=== PATIENT | female | born 1985 | race Caucasian/White ===

== ENCOUNTER 2017-09-17 06:32 | Emergency (ER) | payer OTHER ==
[~2017-09-17] VITALS: Ht 162.6 cm; Wt 103.1 kg
--- NOTE | 2017-09-17 07:32 | PHYS DOC ---
Past Medical History Past Medical History: Hypertension Additional Past Medical Histor: MEDS D/C'D BY PHYSICIAN FOR HTN Past Surgical History: Cholecystectomy, , Other Additional Past Surgical Histo: SPLEENECTOMY, ARTHROSCOPY OF RIGHT KNEE Alcohol Use: None Drug Use: None Adult General Chief Complaint Chief Complaint: NEURO SYMPTOMS/DEFICITS HPI HPI 31-year-old female presenting to the emergency department today with left facial droop last known well at 2200 last night. She reports waking up this morning and noticing facial drooping. She denies any weakness numbness or tingling in her extremities. She denies vertigo currently. She denies vision changes or slurred speech. She denies ambulation difficulty. She denies chest pain shortness of breath. Location face. Duration constant. No alleviating or exacerbating factors present. She denies neck pain or recent neck manipulation. Review of systems is negative for chest pain shortness of breath abdominal pain nausea vomiting fevers chills. All other review of systems is negative unless otherwise noted in history of present illness. ED course: 31-year-old female presenting to the emergency department with facial droop. Patient was outside of the window for TPA based on last known well. On arrival she is mildly tachycardic afebrile and resting comfortably in the examination room. No other neurologic deficits noted on neuro exam. I discussed the case with Dr. saldaña our neurologist who recommended the patient receive an MRI of brain with fine cuts of the facial nerve. I discussed this with the patient which the patient does not want to pursue. I explained the risks and benefits including the risk of missing a stroke although unlikely in a young patient would be significant. I also specifically explained the concern that the facial palsy spares the forehead with the patient. I explained to her that this is more suggestive of a central cause which is why an MRI would be prudent. Patient demonstrates verbal understanding of this however desires to pursue MRI as an outpatient. Patient demonstrates medical decision making capacity. The patient was then discharged for outpatient MRI and outpatient consultation with our neurology team in 5-7 days which the patient is comfortable with. The patient was then discharged home to follow up with their primary care physician over the next 2-3 days and outpt MRI as desired per neurology. They were to return if their symptoms worsened or if they were concerned for any reason. [id number] discharge instructions and return precautions were given. Patient's questions were answered to their satisfaction. Patient is comfortable plan. Review of Systems Review of Systems SEE ABOVE. Physical Exam Physical Exam SEE ABOVE Constitutional: Well developed, well nourished, no acute distress, non-toxic appearance. HENT: Normocephalic, atraumatic, bilateral external ears normal, oropharynx moist, no oral exudates, nose normal. [] Eyes: PERRLA, EOMI, conjunctiva normal, no discharge. [] Neck: Normal range of motion, no tenderness, supple, no stridor. Cardiovascular:Heart rate regular rhythm, no murmur [] Lungs & Thorax: Bilateral breath sounds clear to auscultation [] Abdomen: Bowel sounds normal, soft, no tenderness, no masses, no pulsatile masses. Skin: Warm, dry, no erythema, no rash. [] Back: No tenderness, no CVA tenderness. [] Extremities: No tenderness, no cyanosis, no clubbing, ROM intact, no edema. [] Neurologic: Mental status: Awake oriented and alert x3 Cranial nerves: Extraocular movements intact, patient has partial palsy of the left side of the face sparing the forehead, uvula elevation, shoulder shrug intact, tongue protrusion normal DTRs: 2+ Sensation: equal and normal in all extremities Strength: 5/5 in upper and lower extremities bilaterally Normal rapid alternating movements. No evidence of dysdiadochokinesia. Normal [id number]. Normal finger to nose. Psychologic: Affect normal, judgement normal, mood normal. [] Current Patient Data Vital Signs Vital Signs Date Time Temp Pulse Resp B/P (MAP) Pulse Ox O2 Delivery O2 Flow Rate FiO2 09/17/17 08:57 81 16 97 09/17/17 06:32 98.3 148/77 (100) Room Air 98.3 Lab Values Laboratory Tests Test 09/17/17 06:38 09/17/17 07:00 09/17/17 07:26 09/17/17 07:45 Glucose (Fingerstick) 88 mg/dL (70-99) Urine Collection Type Unknown Urine Color Yellow Urine Clarity Clear Urine pH 6.0 Urine Specific [place] 1.025 Urine Protein Negative mg/dL (NEG-TRACE) Urine Glucose (UA) Negative mg/dL (NEG) Urine Ketones (Stick) Negative mg/dL (NEG) Urine Blood Moderate (NEG) Urine Nitrite Negative (NEG) Urine Bilirubin Negative (NEG) Urine Urobilinogen Dipstick 0.2 mg/dL (0.2 mg/dL) Urine Leukocyte Esterase Moderate (NEG) Urine RBC 3-5 /HPF (0-2) Urine WBC 11-20 /HPF (0-4) Urine Squamous Epithelial Cells Mod /LPF Urine Bacteria Moderate /HPF (0-FEW) Urine Mucus Marked /LPF POC Urine HCG, Qualitative Hcg negative (Negative) White Blood Count 10.8 x10^3/uL (4.0-11.0) Red Blood Count 4.84 x10^6/uL (3.50-5.40) Hemoglobin 13.3 g/dL (12.0-15.5) Hematocrit 40.0 % (36.0-47.0) Mean Corpuscular Volume 83 fL (79-100) Mean Corpuscular Hemoglobin 28 pg (25-35) Mean Corpuscular Hemoglobin Concent 33 g/dL (31-37) Red Cell Distribution Width 15.9 % (11.5-14.5) H Platelet Count 551 x10^3/uL (140-400) H Neutrophils (%) (Auto) 53 % (31-73) Lymphocytes (%) (Auto) 35 % (24-48) Monocytes (%) (Auto) 10 % (0-9) H Eosinophils (%) (Auto) 2 % (0-3) Basophils (%) (Auto) 0 % (0-3) Neutrophils # (Auto) 5.7 x10^3uL (1.8-7.7) Lymphocytes # (Auto) 3.7 x10^3/uL (1.0-4.8) Monocytes # (Auto) 1.1 x10^3/uL (0.0-1.1) Eosinophils # (Auto) 0.2 x10^3/uL (0.0-0.7) Basophils # (Auto) 0.0 x10^3/uL (0.0-0.2) Prothrombin Time 12.6 SEC (11.7-14.0) Prothrombin Time INR 1.0 (0.8-1.1) PTT 34 SEC (24-38) Sodium Level 140 mmol/L (136-145) Potassium Level 4.0 mmol/L (3.5-5.1) Chloride Level 104 mmol/L (98-107) Carbon Dioxide Level 27 mmol/L (21-32) Anion Gap 9 (6-14) Blood Urea Nitrogen 12 mg/dL (7-20) Creatinine 0.7 mg/dL (0.6-1.0) Estimated GFR (Cockcroft-Gault) 98.3 Glucose Level 95 mg/dL (70-99) Calcium Level 8.6 mg/dL (8.5-10.1) Laboratory Tests 09/17/17 07:45 Laboratory Tests 09/17/17 07:45 EKG EKG [] Radiology/Procedures Radiology/Procedures [] Course & Med Decision Making Course & Med Decision Making Pertinent Labs and Imaging studies reviewed. (See chart for details) [] Dragon Disclaimer Dragon Disclaimer This electronic medical record was generated, in whole or in part, using a voice recognition dictation system. Departure Departure Impression: Primary Impression: Facial droop Disposition: HOME, SELF-CARE Condition: STABLE Referrals: NO PCP (PCP) MATTHEW MARTINEZ MD, FERILYN MD Additional Instructions: Thank you for allowing us to participate in your care today. If at any point in time you change your mind and would like to pursue an MRI faster, we would be happy to have you back. Followup with your primary care physician in 3 days if your symptoms do not improve. I have given you the information for our neurologist Dr. saldaña who would like to see you within the next 4-5 days. Also, currently the plan is to get an outpatient MRI of the brain with and without contrast with fine cuts of the facial nerve. Call your Primary Doctor tomorrow and inform them of your visit today. If you do not have a primary care provider you can ask for a list of our primary care providers. Return to the emergency department you have any new or concerning findings. This should be evaluated by the primary care physician and any necessary consulting services for continued management within a few days after discharge. Return to emergency room if you have any new or concerning symptoms including but not limited to fever, chills, nausea, vomiting, intractable pain, any new rashes, chest pain, shortness of air, uncontrolled bleeding, difficulty breathing, and/or vision loss. Scripts Valacyclovir Hcl (VALACYCLOVIR) 1,000 Mg Tablet 1 TAB PO TID, #21 TAB Prov: SARAH ENRIQUEZ MD 09/17/17 Prednisone (PREDNISONE) 20 Mg Tablet 3 TAB PO DAILY for 7 Days, #21 TAB 0 Refills Prov: SARAH ENRIQUEZ MD 09/17/17 SARAH ENRIQUEZ MD Sep 17, 2017 07:32
[2017-09-17 07:37] LABS: BILIRUBIN,URINE NEGATIVE (NEG); GLUCOSE,URINE NEGATIVE (NEG); NITRITE,URINE NEGATIVE (NEG); PROTEIN,URINE NEGATIVE (NEG-TRACE); UROBILINOGEN,URINE 0.2 mg/dL (0.2 mg/dL)
[2017-09-17 07:52] LABS: BASO % 0 % (0-3); EOS % 2 % (0-3); HEMOGLOBIN 13.3 g/dL (12.0-15.5); LYMPH # 3.7 x10^3/uL (1.0-4.8); LYMPH % 35 % (24-48); MEAN CORPUSCULAR HEMOGLOBIN 28 pg (25-35); MEAN CORPUSCULAR HGB CONC 33 g/dL (31-37); MEAN CORPUSCULAR VOLUME 83 fL (79-100); MONO % 10 % (0-9); NEUT % 53 % (31-73); PLATELET COUNT 551 x10^3/uL (140-400); RED BLOOD COUNT 4.84 x10^6/uL (3.50-5.40); RED CELL DISTRIBUTION WIDTH 15.9 % (11.5-14.5); WHITE BLOOD COUNT 10.8 x10^3/uL (4.0-11.0)
[2017-09-17 07:59] LABS: BACTERIA,URINE MODERATE /HPF (0-FEW); SQUAMOUS EPITHELIAL CELL,UR MOD /LPF
[2017-09-17 08:01] LABS: CALCIUM 8.6 mg/dL (8.5-10.1); CREATININE 0.7 mg/dL (0.6-1.0); GFR 98.3
[2017-09-17 08:04] LABS: PROTHROMBIN TIME PATIENT 12.6 SEC (11.7-14.0)
--- NOTE | 2017-09-17 08:14 | EKG ---
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
--- NOTE | 2017-09-17 08:24 | RAD ---
CT scan of the head without contrast 09/17/2017 Clinical history: Left facial droop. Technique: Unenhanced, contiguous, 5 mm axial sections were obtained through the head. One or more of the following individualized dose reduction techniques were utilized for this study: 1. Automated exposure control. 2. Adjustment of the mA and/or kV according to patient size. 3. Use of iterative reconstruction technique. Findings: The ventricles and sulci are within normal limits in size and configuration. No area of abnormal attenuation is involving the brain parenchyma. No extra-axial fluid collection is seen. No skull fracture is noted. Impression: Negative study.
[2017-09-17 08:57] VITALS: BP 119/68
[2017-09-17] MEDS ORDERED: PRED20TA PO (09:26)
[2017-09-17] MEDS ORDERED: VALA1000 PO (09:26)
== END 2017-09-17 09:42 | disposition home or self-care (01) ==
LOC: ER 06:32
DX: R29.810 Facial weakness (principal); I10 Essential (primary) hypertension
CPT/HCPCS: 36415; 70450; 80048; 81001; 81025; 82962; 85025; 85610; 85730; 87086; 93005; 99285-25

== ENCOUNTER 2019-04-08 11:02 | Emergency (ER) | payer OTHER ==
[~2019-04-08] VITALS: Ht 160 cm; Wt 78.0 kg
[~2019-04-08 11:02] MED LIST: PRED20TA PO; VALA1000 PO
[2019-04-08] MEDS ORDERED: IV NORMAL SALINE 1000ML BAG 1,000 ML IV SCH (11:27)
--- NOTE | 2019-04-08 11:37 | PHYS DOC ---
Past Medical History Past Medical History: Hypertension Additional Past Medical Histor: MEDS D/C'D BY PHYSICIAN FOR HTN Past Surgical History: Cholecystectomy, , Other Additional Past Surgical Histo: SPLEENECTOMY, ARTHROSCOPY OF RIGHT KNEE Alcohol Use: None Drug Use: None Adult General Chief Complaint Chief Complaint: Palpitations HPI HPI Patient is a 33 year old female who presents with complaining of almost passing out and heart racing. Patient states she was sitting at her desk at work and suddenly felt generalized weakness and dizziness with almost passing out associated with chest tightness in substernal area and palpitation. Patient states she had diaphoresis and nausea with blood sugar of 110 and blood pressure of 160s at the same time without history of hypertension. Patient states her nausea and diaphoresis he improved but she still feels Review of Systems Review of Systems Constitutional: Denies fever or chills [] Eyes: Denies change in visual acuity, redness, or eye pain [] HENT: Denies nasal congestion or sore throat [] Respiratory: Denies cough or shortness of breath [] Cardiovascular: No additional information not addressed in HPI [] GI: Denies abdominal pain, nausea, vomiting, bloody stools or diarrhea [] : Denies dysuria or hematuria [] Musculoskeletal: Denies back pain or joint pain [] Integument: Denies rash or skin lesions [] Neurologic: Denies headache, focal weakness or sensory changes [] Endocrine: Denies polyuria or polydipsia [] All other systems were reviewed and found to be within normal limits, except as documented in this note. Current Medications Current Medications Current Medications Medications (Trade) Dose Ordered Sig/Lakeisha Start Time Stop Time Status Last Admin Dose Admin Sodium Chloride 1,000 ml @ 1,000 mls/hr Q1H 04/08/19 11:27 04/08/19 12:26 DC 04/08/19 12:01 1,000 MLS/HR Allergies Allergies Allergies Coded Allergies Type Severity Reaction Last Updated Verified No Known Drug Allergies 04/08/19 No Physical Exam Physical Exam Constitutional: Well developed, well nourished, no acute distress, non-toxic appearance. [] HENT: Normocephalic, atraumatic, bilateral external ears normal, oropharynx moist, no oral exudates, nose normal. [] Eyes: PERRLA, EOMI, conjunctiva normal, no discharge. [] Neck: Normal range of motion, no tenderness, supple, no stridor. [] Cardiovascular:Heart rate regular rhythm, no murmur [] Lungs & Thorax: Bilateral breath sounds clear to auscultation [] Abdomen: Bowel sounds normal, soft, no tenderness, no masses, no pulsatile masses. [] Skin: Warm, dry, no erythema, no rash. [] Back: No tenderness, no CVA tenderness. [] Extremities: No tenderness, no cyanosis, no clubbing, ROM intact, no edema. [] Neurologic: Alert and oriented X 3, normal motor function, normal sensory function, no focal deficits noted. [] Psychologic: Affect normal, judgement normal, mood normal. [] Current Patient Data Vital Signs Vital Signs Date Time Temp Pulse Resp B/P (MAP) Pulse Ox O2 Delivery O2 Flow Rate FiO2 04/08/19 11:07 98.2 119 23 161/79 (106) 100 Room Air 98.2 Lab Values Laboratory Tests Test 04/08/19 11:30 04/08/19 11:37 04/08/19 11:46 04/08/19 11:55 Urine Collection Type Unknown Urine Color Yellow Urine Clarity Clear Urine pH 6.0 Urine Specific [place] 1.010 Urine Protein Negative mg/dL (NEG-TRACE) Urine Glucose (UA) Negative mg/dL (NEG) Urine Ketones (Stick) Negative mg/dL (NEG) Urine Blood Moderate (NEG) Urine Nitrite Negative (NEG) Urine Bilirubin Negative (NEG) Urine Urobilinogen Dipstick 0.2 mg/dL (0.2 mg/dL) Urine Leukocyte Esterase Negative (NEG) Urine RBC 0 /HPF (0-2) Urine WBC 0 /HPF (0-4) Urine Bacteria 0 /HPF (0-FEW) Glucose (Fingerstick) 92 mg/dL (70-99) POC Urine HCG, Qualitative Hcg negative (Negative) White Blood Count 9.3 x10^3/uL (4.0-11.0) Red Blood Count 4.45 x10^6/uL (3.50-5.40) Hemoglobin 13.7 g/dL (12.0-15.5) Hematocrit 39.5 % (36.0-47.0) Mean Corpuscular Volume 89 fL (79-100) Mean Corpuscular Hemoglobin 31 pg (25-35) Mean Corpuscular Hemoglobin Concent 35 g/dL (31-37) Red Cell Distribution Width 13.4 % (11.5-14.5) Platelet Count 433 x10^3/uL (140-400) H Neutrophils (%) (Auto) 64 % (31-73) Lymphocytes (%) (Auto) 27 % (24-48) Monocytes (%) (Auto) 8 % (0-9) Eosinophils (%) (Auto) 1 % (0-3) Basophils (%) (Auto) 1 % (0-3) Neutrophils # (Auto) 5.9 x10^3/uL (1.8-7.7) Lymphocytes # (Auto) 2.5 x10^3/uL (1.0-4.8) Monocytes # (Auto) 0.8 x10^3/uL (0.0-1.1) Eosinophils # (Auto) 0.1 x10^3/uL (0.0-0.7) Basophils # (Auto) 0.0 x10^3/uL (0.0-0.2) D-Dimer (Christie) < 0.27 ug/mlFEU Sodium Level 139 mmol/L (136-145) Potassium Level 3.4 mmol/L (3.5-5.1) L Chloride Level 101 mmol/L (98-107) Carbon Dioxide Level 26 mmol/L (21-32) Anion Gap 12 (6-14) Blood Urea Nitrogen 14 mg/dL (7-20) Creatinine 0.7 mg/dL (0.6-1.0) Estimated GFR (Cockcroft-Gault) 97.0 BUN/Creatinine Ratio 20 (6-20) Glucose Level 96 mg/dL (70-99) Calcium Level 9.0 mg/dL (8.5-10.1) Magnesium Level 1.7 mg/dL (1.8-2.4) L Total Bilirubin 0.4 mg/dL (0.2-1.0) Aspartate Amino Transferase (AST) 16 U/L (15-37) Alanine Aminotransferase (ALT) 22 U/L (14-59) Alkaline Phosphatase 58 U/L (46-116) Creatine Kinase 96 U/L (26-192) Troponin I Quantitative < 0.017 ng/mL (0.000-0.055) BS-Bzd-L-Type Natriuretic Peptide 39 pg/mL (0-124) Total Protein 8.1 g/dL (6.4-8.2) Albumin 4.0 g/dL (3.4-5.0) Albumin/Globulin Ratio 1.0 (1.0-1.7) Lipase 173 U/L (73-393) Laboratory Tests 04/08/19 11:55 Laboratory Tests 04/08/19 11:55 EKG EKG EKG interpreted by me. EKG at 1119 showed sinus tachycardia at rate of 104, left atrial abnormality, poor R-wave progress in anteroseptal leads, normal TN and QT intervals, no acute ST or T-wave abnormalities. Radiology/Procedures Radiology/Procedures [][facility] [address] [place], [place] [id number] IMAGING REPORT Signed PATIENT: LUIS RIDER ACCOUNT: [id number] : 1985 LOCATION: ER AGE: 33 SEX: F EXAM STATUS: REG ER ORD. PHYSICIAN: CJ THAKKAR MD REASON: near-syncope and palpitation PROCEDURE: PORTABLE CHEST 1V Examination: PORTABLE CHEST 1V History: Near syncope, palpitation Comparison/Correlation: None Findings: Portable upright frontal view of the chest was obtained. Heart size and pulmonary vasculature are normal. No infiltrate or pleural effusion. No pneumothorax. Left lateral perihilar calcified granuloma noted. No acute bony process. Left subdiaphragmatic surgical clips are present. Impression: No active disease. Electronically signed by: Ridge Smith MD (04/08/2019 12:17 PM) [facility] DICTATED and SIGNED BY: RIDGE SMITH MD DATE: 04/08/19 1210 Course & Med Decision Making Course & Med Decision Making Pertinent Labs and Imaging studies reviewed. (See chart for details) Evaluation of patient in ER showed 33-year-old female patient with complaining of sudden onset of dizziness and palpitation and elevation of blood pressure while she was sitting up. Patient had mild tachycardia at arrival to ER that improved with this. Patient had unremarkable EKG and labs and chest x-ray and physical exam. Patient was advised to follow-up with care physician for further evaluation. I've spoken with the patient and/or caregivers. I've explained the patient's condition, diagnosis and treatment plan based on information available to me at this time. I've answered the patient's and/or caregivers questions and addressed any concerns. The patient and/or caregivers have a good understanding the patient's diagnosis, condition and treatment plan as can be expected at this point. Vital signs have been stabilized. The patient's condition is stable for discharge from the emergency department. The patient will pursue further outpatient evaluation with her primary care provider or other designated consulting physician as outlined in the discharge instructions. Patient and/or caregivers are agreeable to this plan of care and follow-up instructions have been explained in detail. The patient and/or caregivers have received these instructions in written format and expressed understanding of these discharge instructions. The patient and her caregivers are aware that if any significant change in condition or worsening of symptoms should prompt him to immediately return to this of the closest emergency department. If an emergent department is not readily available I would encourage him to call 911. Michelle Disclaimer Reglaon Disclaimer This electronic medical record was generated, in whole or in part, using a voice recognition dictation system. Departure Departure Impression: Primary Impression: Near syncope Additional Impressions: Panic attack Palpitation Hypokalemia Hypomagnesemia Disposition: HOME, SELF-CARE (at 1313) Condition: IMPROVED Referrals: NO PCP (PCP) Patient Instructions: Hypokalemia, Hypomagnesemia, Near-Syncope, Palpitations Additional Instructions: Drink plenty of liquids Follow-up with your primary care physician in 3-5 days Return to ER if not getting better The HEART Score for CP Pts HEART Score for Chest Pain: HEART Score for Chest Pain Response (Comments) Value History Slighlty/Non-Suspicious 0 ECG Nonspecific Repolarizatio 1 Age < 45 0 Risk Factors 1 or 2 Risk Factors 1 Troponin < Normal Limit 0 Total 2 Risk Factors: Risk Factors: DM, Current or recent (<one month) smoker, HTN, HLP, family history of CAD, obesity. Risk Scores: Score 0 - 3: 2.5% MACE over next 6 weeks - Discharge Home Score 4 - 6: 20.3% MACE over next 6 weeks - Admit for Clinical Observation Score 7 - 10: 72.7% MACE over next 6 weeks - Early Invasive Strategies Problem Qualifiers CJ THAKKAR MD Apr 08, 2019 11:36
--- NOTE | 2019-04-08 11:50 | EKG ---
[facility] [address] [place] [address] Test Date: 2019-04-08 Test Time: 11:19:39 Pat Name: LUIS RIDER Department: Room: Gender: F Diesel Bus Mechanic: : 1985 Requested By: CJ THAKKAR Order Number: [id number] Reading MD: Measurements Intervals [place] Rate: 104 P: 49 TX: 146 QRS: 77 QRSD: 96 T: -13 QT: 310 QTc: 408 Interpretive Statements SINUS TACHYCARDIA LEFT ATRIAL ABNORMALITY QRS(T) CONTOUR ABNORMALITY CONSIDER ANTEROLATERAL MYOCARDIAL DAMAGE CONSIDER INFERIOR MYOCARDIAL DAMAGE ABNORMAL ECG RI6.01 Unconfirmed report No previous ECG available for comparison
[2019-04-08 11:57] LABS: BILIRUBIN,URINE NEGATIVE (NEG); CLARITY,URINE CLEAR; COLOR,URINE YELLOW; NITRITE,URINE NEGATIVE (NEG); PROTEIN,URINE NEGATIVE (NEG-TRACE); UROBILINOGEN,URINE 0.2 mg/dL (0.2 mg/dL)
[2019-04-08 12:09] LABS: BACTERIA,URINE 0 /HPF (0-FEW); RBC,URINE 0 /HPF (0-2); WBC,URINE 0 /HPF (0-4)
[2019-04-08 12:09] LABS: BASO % 1 % (0-3); EOS # 0.1 x10^3/uL (0.0-0.7); EOS % 1 % (0-3); HEMATOCRIT 39.5 % (36.0-47.0); HEMOGLOBIN 13.7 g/dL (12.0-15.5); LYMPH # 2.5 x10^3/uL (1.0-4.8); LYMPH % 27 % (24-48); MEAN CORPUSCULAR HEMOGLOBIN 31 pg (25-35); MEAN CORPUSCULAR HGB CONC 35 g/dL (31-37); MEAN CORPUSCULAR VOLUME 89 fL (79-100); MONO # 0.8 x10^3/uL (0.0-1.1); MONO % 8 % (0-9); NEUT # 5.9 x10^3/uL (1.8-7.7); NEUT % 64 % (31-73); PLATELET COUNT 433 x10^3/uL (140-400); RED BLOOD COUNT 4.45 x10^6/uL (3.50-5.40); RED CELL DISTRIBUTION WIDTH 13.4 % (11.5-14.5); WHITE BLOOD COUNT 9.3 x10^3/uL (4.0-11.0)
--- NOTE | 2019-04-08 12:20 | RAD ---
Examination: PORTABLE CHEST 1V History: Near syncope, palpitation Comparison/Correlation: None Findings: Portable upright frontal view of the chest was obtained. Heart size and pulmonary vasculature are normal. No infiltrate or pleural effusion. No pneumothorax. Left lateral perihilar calcified granuloma noted. No acute bony process. Left subdiaphragmatic surgical clips are present. Impression: No active disease. Electronically signed by: Ridge Peacock MD (04/08/2019 12:17 PM) [facility]
[2019-04-08 12:25] LABS: CREATININE 0.7 mg/dL (0.6-1.0); POTASSIUM 3.4 mmol/L (3.5-5.1)
[2019-04-08 12:31] LABS: MAGNESIUM 1.7 mg/dL (1.8-2.4); TOTAL BILIRUBIN 0.4 mg/dL (0.2-1.0); TOTAL PROTEIN 8.1 g/dL (6.4-8.2)
[2019-04-08 13:30] VITALS: BP 143/74
== END 2019-04-08 13:51 | disposition home or self-care (01) ==
LOC: ER 11:02
DX: R55 Syncope and collapse (principal); F41.0 Panic disorder [episodic paroxysmal anxiety]; E87.6 Hypokalemia; E83.42 Hypomagnesemia; R00.2 Palpitations; R07.89 Other chest pain; R42 Dizziness and giddiness; R53.1 Weakness; R11.0 Nausea; I10 Essential (primary) hypertension; Z90.49 Acquired absence of other specified parts of digestive tract; Z98.890 Other specified postprocedural states; Z90.81 Acquired absence of spleen
CPT/HCPCS: 36415; 71045; 80053; 81001; 81025; 82550; 82962; 83690; 83735; 83880; 84484; 85025; 85379; 93005; 96360; 99285; J7030